=== PATIENT | male | born 1970 | race Caucasian/White ===

== ENCOUNTER 2020-07-09 00:31 | Observation (INO) ==
[2020-07-09] MEDS ORDERED: Ondansetron 4 MG/2 ML VIAL IVP PRN (05:49)
[2020-07-09] MEDS ORDERED: Naloxone 0.4 MG/ML INJ IVP PRN (05:49)
[2020-07-09 05:56] LABS: Basophils % 0.7 %; Eosinophils # 0.2 K/mcL (0.0-0.6); Hematocrit 44.9 % (37.5-50.1); Hemoglobin 14.4 g/dL (12.9-16.9); Immature Granulocytes % 0.2 % (0-4); Immature Platelets 4.7 % (1.1-6.1); Lymphocytes % 30.6 %; Mean Corpuscular HGB Conc 32.1 g/dL (31.6-35.5); Mean Corpuscular Hemoglobin 29.3 pg (28.0-33.3); Mean Corpuscular Volume 91.3 fL (83.0-100.0); Mean Platelet Volume 10.4 fL (9.4-12.4); Monocytes # 0.5 K/mcL (0.0-1.3); Monocytes % 8.8 %; Neutrophils # 3.2 K/mcL (1.6-8.9); Red Blood Count 4.92 M/mcL (4.19-5.50); Red Cell Distribution Width 13.8 % (11.5-14.5); Segmented Neutrophils % 55.7 %; White Blood Count 5.7 K/mcL (4.3-11.1)
[2020-07-09 06:01] LABS: INR 1.1
[2020-07-09 06:13] LABS: Lymphocytes # 1.7 K/mcL (0.6-4.6); Platelet Count 95 K/mcL (140-400)
[2020-07-09 06:14] LABS: Alanine Aminotransferase 167 Units/L (7-52); Albumin 3.8 g/dL (3.5-5.7); Albumin/Globulin Ratio 0.9 (1.1-2.2); Alkaline Phosphatase 125 Units/L (34-104); Aspartate Amino Transferase 185 Units/L (13-39); BUN/Creatinine Ratio 10 (6-26); Bilirubin,Total 0.6 mg/dL (0.3-1.0); Blood Urea Nitrogen 8 mg/dL (6-20); Calcium 8.6 mg/dL (8.6-10.3); Carbon Dioxide 27 mEq/L (23-29); Chloride 103 mEq/L (98-107); Globulin 4.1 g/dL (2.4-3.5); Glucose 169 mg/dL (70-105); Osmolality,Calculated 284 (280-300); Platelet Estimate Slight Decrease (Normal); Potassium 4.4 mEq/L (3.5-5.1); Sodium 136 mEq/L (136-145); Total Protein 7.9 g/dL (6.4-8.9); eGFR For African Americans > 60 (> 60); eGFR For Non-African Americans > 60 (> 60)
[2020-07-09] MEDS: Pantoprazole 40 MG VIAL IVP SCH ×2 (08:30→17:55)
[2020-07-09] MEDS: Octreotide 400 MCG in 0.9 % Sodium Chloride 100 ML IVC SCH ×2 (08:35→16:15)
[2020-07-09] MEDS ORDERED: cefTRIAXone 1,000 MG in Water for inj. (sterile) 10 ML IVP SCH (09:00)
[2020-07-09] MEDS ORDERED: Lidocaine -MPF 2% 2 ML VIAL ONE (14:01)
[2020-07-09] MEDS ORDERED: *HR* Propofol 200 MG/20 ML VIAL IVP ONE (14:01)
[2020-07-09 16:10] LABS: Hematocrit 46.9 % (37.5-50.1); Hemoglobin 14.9 g/dL (12.9-16.9)
[2020-07-09 23:20] LABS: Hematocrit 41.9 % (37.5-50.1); Hemoglobin 13.5 g/dL (12.9-16.9)
[2020-07-10 05:21] LABS: Hematocrit 41.2 % (37.5-50.1); Hemoglobin 13.2 g/dL (12.9-16.9)
[2020-07-10] MEDS: Pantoprazole 40 MG VIAL IVP SCH (05:25)
[2020-07-10 05:35] LABS: Alanine Aminotransferase 159 Units/L (7-52); Albumin 3.4 g/dL (3.5-5.7); Alkaline Phosphatase 98 Units/L (34-104); Aspartate Amino Transferase 159 Units/L (13-39); BUN/Creatinine Ratio 20 (6-26); Bilirubin,Direct 0.3 mg/dL (0.0-0.2); Bilirubin,Indirect 0.7 mg/dL (0.0-1.0); Blood Urea Nitrogen 16 mg/dL (6-20); Calcium 8.3 mg/dL (8.6-10.3); Carbon Dioxide 26 mEq/L (23-29); Chloride 102 mEq/L (98-107); Globulin 3.3 g/dL (2.4-3.5); Glucose 119 mg/dL (70-105); Osmolality,Calculated 280 (280-300); Potassium 3.9 mEq/L (3.5-5.1); Sodium 134 mEq/L (136-145); Total Protein 6.7 g/dL (6.4-8.9); eGFR For African Americans > 60 (> 60); eGFR For Non-African Americans > 60 (> 60)
[2020-07-10] MEDS: amLODIPine 5 MG TABLET PO SCH (08:24)
[2020-07-11] MEDS: amLODIPine 5 MG TABLET PO SCH (07:57)
[2020-07-12] MEDS ORDERED: hydrALAZINE 10 MG TABLET PO ONE (00:20)
[2020-07-12] MEDS ORDERED: Artificial Tears SOLN 15 ML BOTTLE BOTH EYES PRN (01:35)
[2020-07-12 05:15] LABS: Red Cell Distribution Width 13.3 % (11.5-14.5)
[2020-07-12 05:17] LABS: Hematocrit 44.4 % (37.5-50.1); Hemoglobin 14.3 g/dL (12.9-16.9); Immature Platelets 4.6 % (1.1-6.1); Mean Corpuscular HGB Conc 32.2 g/dL (31.6-35.5); Mean Corpuscular Hemoglobin 29.4 pg (28.0-33.3); Mean Corpuscular Volume 91.4 fL (83.0-100.0); Mean Platelet Volume 10.8 fL (9.4-12.4); Red Blood Count 4.86 M/mcL (4.19-5.50); White Blood Count 5.5 K/mcL (4.3-11.1)
[2020-07-12 05:34] LABS: Alanine Aminotransferase 221 Units/L (7-52); Albumin 3.5 g/dL (3.5-5.7); Albumin/Globulin Ratio 0.9 (1.1-2.2); Alkaline Phosphatase 107 Units/L (34-104); Aspartate Amino Transferase 207 Units/L (13-39); BUN/Creatinine Ratio 23 (6-26); Blood Urea Nitrogen 18 mg/dL (6-20); Calcium 8.4 mg/dL (8.6-10.3); Carbon Dioxide 24 mEq/L (23-29); Chloride 101 mEq/L (98-107); Globulin 3.9 g/dL (2.4-3.5); Glucose 91 mg/dL (70-105); Magnesium 1.9 mg/dL (1.6-2.6); Osmolality,Calculated 275 (280-300); Potassium 4.1 mEq/L (3.5-5.1); Sodium 132 mEq/L (136-145); Total Protein 7.4 g/dL (6.4-8.9); eGFR For African Americans > 60 (> 60); eGFR For Non-African Americans > 60 (> 60)
[2020-07-12 08:29] VITALS: BP 133/102
[2020-07-12] MEDS ORDERED: amLODIPine 5 MG TABLET PO SCH (09:00)
[2020-07-12 11:17] LABS: F-Actin (sm muscle) Ab IgG 15 Units (0-19)
[2020-07-12 14:00] LABS: ANA IgG by ELISA NONE DETECTED (None Detected)
[2020-07-12 15:21] LABS: HCV Quant Interpretation DETECTED (Not Detected)
[2020-07-17 09:18] LABS: HCV Genotype by Sequencing 1A OR 1B
== END 2020-07-12 16:02 | disposition home or self-care (01) ==
LOC: 2NENU → SUATTDRO 05:12
PROVIDERS: ADMIT Family Medicine; ATTEND Internal Medicine
PROC: ENDOEBX (2020-07-09 13:30)